=== PATIENT | male | born 2000 | race Caucasian/White ===

== ENCOUNTER 2020-03-08 12:48 | Outpatient (CLI) | payer OTHER, SELFPAY ==
[2020-03-09 18:46] LABS: SARS-CoV-2 RNA PCR Negative
== END 2020-03-08 12:49 | disposition home or self-care (01) ==
LOC: CHSLAB 12:53
PROVIDERS: PCP Nurse Practitioner Family; Visit Provider Nurse Practitioner Family
DX: Z20.822 Contact with and (suspected) exposure to COVID-19 (principal)
CPT/HCPCS: C9803; U0003; U0005

== ENCOUNTER 2020-11-14 10:38 | Outpatient (CLI) | payer OTHER, SELFPAY ==
[2020-11-14 11:59] LABS: SARS-CoV-2 RNA PCR Negative (Negative)
== END 2020-11-14 10:39 | disposition home or self-care (01) ==
PROVIDERS: PCP Nurse Practitioner Family; Visit Provider Nurse Practitioner Family
DX: R43.2 Parageusia (principal); Z20.822 Contact with and (suspected) exposure to COVID-19
CPT/HCPCS: C9803; U0003; U0005

== ENCOUNTER 2021-08-03 08:14 | Emergency (ER) | payer SELFPAY ==
--- NOTE | ~2021-08-03 | XR_ITS ---
XR elbow LT min 3V 08/03/2021 08:49 Indication: Left elbow pain after trauma Procedure: 3 views left elbow Comparison: No prior studies for comparison. Findings: There is a nondisplaced radial head fracture. Lateral views limited for evaluation of joint effusion. No other fracture is identified. Moderate soft tissue swelling surrounding the elbow. Impression: 1: Nondisplaced radial head fracture. Reviewed, dictated and finalized at location A. Impression: 1: Nondisplaced radial head fracture.
[2021-08-03 08:19] VITALS: BP 141/84; PULSE 74; RESP 18; TEMP 36.5; O2SAT 100
--- NOTE | 2021-08-03 08:26 | ED.UPPEXIN ---
HPI - Extremity Injury (Upper) General Chief Complaint: Extremity Injury, Upper Stated Complaint: possible broken L arm Time Seen by Provider: 08/03/21 08:27 Source: patient Mode of arrival: ambulatory History of Present Illness HPI narrative: 21-year-old was wrestling with his daisha when he sustained a left elbow injury this morning. he presents with pain swelling the left elbow with decreased range of motion. No other injury noted. MD complaint: injury to: left and elbow Onset (ago): minute(s) ( 20 minutes ago) Other Extremity Injury: Left: elbow Other injuries: none Handedness: right Place: home Severity: severe Relieving factors: none Exacerbating factors: movement of extremity Context: direct blow Associated symptoms: denies other symptoms Treatments prior to arrival: cold therapy Related Data Allergies Allergy/AdvReac Type Severity Reaction Status Date / Time No Known Allergies Allergy Verified 08/03/21 08:24 Review of Systems Review of Systems: All systems reviewed & are unremarkable except as noted in HPI and below Constitutional: Constitutional: Reports as per HPI and Reports no additional constitutional complaints Eyes: Eyes: Reports as per HPI and Reports no additional eye complaints ENT: Reports system reviewed and no additional complaints, except as documented and Reports as per HPI Cardiovascular: Cardiovascular: Reports as per HPI and Reports no additional cardiovascular complaints Respiratory: Respiratory: Reports as per HPI and Reports no additional respiratory complaints Gastrointestinal: Gastrointestinal: Reports as per HPI and Reports no additional gastrointestinal complaints Genitourinary: Genitourinary: Reports no additional male genitourinary complaints and Reports as per HPI Musculoskeletal: Musculoskeletal: Reports no additional musculoskeletal complaints and Reports as per HPI Integumentary/Breasts: Skin/Breast: Reports system reviewed and no additional complaints, except as docu and Reports as per HPI Neurologic: Reports system reviewed and no additional complaints, except as documented and Reports as per HPI Psychiatric: Psychiatric: Reports no additional psychiatric complaints and Reports as per HPI Endocrine: Endocrine: Reports no additional endocrine complaints and Reports as per HPI Hematologic/Lymphatic: Hematologic/Lymphatic: Reports no additional hematologic/lymphatic complaints and Reports as per HPI Allergic/Immunologic: Allergic/Immunologic: Reports no additional allergic/immunologic complaints and Reports as per HPI [facility] Social History Social History Smoking status: Never smoker Exam Const: General: ill appearing Orientation/consciousness: patient oriented x3 Limitations: no limitations Other: patient is in severe pain distress HENMT: Head: normal to inspection Ears: external ears normal General nose exam: Normal external nose present Face and sinus: normal facial exam Mouth: Yes Normal oral and palatal mucosa present Throat: posterior oropharynx normal Eyes: Conjunctivae: conjunctivae normal Pupils: Equal, round and reactive pupils present EOM: EOMs intact bilaterally Neck: Neck: normal visual inspection Chest: Chest palpation & inspection: normal inspection of the chest Resp: Effort & Inspection: normal respiratory effort Auscultation: clear to auscultation bilaterally Cardio: Rate: regular rate Rhythm: regular rhythm GI: GI Palp: Yes Soft to palpation Auscultation: normal bowel sounds : General: Yes bladder normal to palpation Back/Spine/Pelvis: Back: no CVA tenderness Skin: General skin exam: normal color Rashes: no rashes Neuro: General: patient oriented x3 Cranial nerves: Yes Nystagmus not present Speech: normal speech Gait exam (Neuro): Normal gait present Other: immobilization of the left upper extremity Extrem: Other: swelling and decreased range of mo
[2021-08-03] MEDS: HYDROmorphone HCL INJ (*CRX) 2 MG/ML VIAL 0.5 MG IM (08:33)
[2021-08-03] MEDS: ONDANSETRON HCL ODT 4 MG TABLET PO (08:34)
--- NOTE | 2021-08-03 08:40 | PC.NURSE ---
xray at bedside
[2021-08-03 08:59] VITALS: BP 130/72; PULSE 85; O2SAT 98
[2021-08-03 09:57] VITALS: BP 134/90; PULSE 84; RESP 19; O2SAT 99
[2021-08-03 09:58] VITALS: BP 134/94; PULSE 66; RESP 18; TEMP 36.3; O2SAT 97
== END 2021-08-03 09:58 | disposition home or self-care (01) ==
PROVIDERS: Emergency Provider Internal Medicine Critical Care Medicine; PCP Nurse Practitioner Family
DX: S52.122A Displaced fracture of head of left radius, initial encounter for closed fracture (principal); Y93.83 Activity, rough housing and horseplay
CPT/HCPCS: 29105; 73080; 96372; 99284; A4565; A9270; J1170

== ENCOUNTER 2021-08-11 09:37 | Outpatient (CLI) | payer MEDICAID, SELFPAY ==
--- NOTE | ~2021-08-11 | XR_ITS ---
XR elbow LT min 3V DATE: 08/11/2021 10:02 INDICATION: Fracture TECHNIQUE: 3 views COMPARISON: 08/03/2021 left elbow FINDINGS: There is a subtle nondisplaced radial head fracture. No other fracture or dislocation IMPRESSION: Subtle nondisplaced radial head fracture Reviewed, dictated and finalized at location A.
== END 2021-08-11 09:38 | disposition home or self-care (01) ==
LOC: CHSIMG 09:39
PROVIDERS: PCP Internal Medicine; Visit Provider Orthopaedic Surgery
DX: S52.125A Nondisplaced fracture of head of left radius, initial encounter for closed fracture (principal); M25.522 Pain in left elbow
CPT/HCPCS: 73080